=== PATIENT | female | born 1995 | race Asian ===

== ENCOUNTER 2016-09-12 19:51 | Emergency (ER) | payer OTHER ==
[2016-09-12] MEDS ORDERED: NS 0.9% 1000 ML* 1,000 ML IV ONE (20:33)
[2016-09-12] MEDS ORDERED: Ondansetron INJ* 2 MG/ML VIAL IV ONE (20:35)
[2016-09-12] MEDS ORDERED: HYDROmorphone* 1 MG/ML 1 ML SYR IV ONE (20:35)
[2016-09-12 21:01] VITALS: BP 102/87
[2016-09-12 21:13] LABS: Hematocrit 38 % (35-47); Hemoglobin 12.6 g/dl (12.0-16.0); Mean Corpuscular HGB Conc 33 g/dl (31-36); Mean Corpuscular Hemoglobin 29 pg (27-31); Mean Corpuscular Volume 88 fL (80-97); Mean Platelet Volume 9 um3 (7.4-10.4); Red Blood Count 4.31 10^6/ul (4.0-5.4); Red Cell Distribution Width 12 % (10.5-15); White Blood Count 7.6 10^3/ul (3.5-10.8)
[2016-09-12 21:14] LABS: Urine Bilirubin Negative (Negative); Urine Glucose Negative (Negative); Urine Nitrite Negative (Negative)
--- NOTE | 2016-09-12 21:17 | RAD ---
INDICATION: Right upper quadrant pain COMPARISON: CT November 05, 2015 TECHNIQUE: Longitudinal and transverse scans of the right upper quadrant were obtained. Doppler interrogation of the hepatic and portal venous system was performed. FINDINGS: Liver: The liver is normal in size and echogenicity. There are no focal masses. The liver measures 14.2 cm in cephalocaudal dimension. Vessels: There is normal hepatic and portal venous flow. Bile ducts: There is no evidence of intrahepatic or extrahepatic ductal dilatation. The common duct measures 0.3 cm. Gallbladder: There is a small, nonshadowing, echogenic focus in the neck the gallbladder which may represent a polyp or less likely a noncalcified stone. There is no thickening of the gallbladder wall or pericholecystic fluid. Pancreas: The visualized pancreas appears normal Right kidney: The right kidney is normal in size and echogenicity. There are no masses or calculi. There is no evidence of hydronephrosis. The right kidney measures 9.8 x 4.6 x 3.7 cm. IVC and aorta: The aorta and superior vena cava appear normal. Fluid: There is no ascites. Other: None. IMPRESSION: PROBABLE GALLBLADDER POLYP, LESS LIKELY NONCALCIFIED STONE . NO SONOGRAPHIC FINDINGS OF ACUTE CHOLECYSTITIS
[2016-09-12 21:26] LABS: ALT 15 U/L (7-52); Albumin 4.4 g/dL (3.2-5.2); Alkaline Phosphatase 40 U/L (34-104); BUN/Creatinine Ratio 21.3 (8-20); Blood Urea Nitrogen 16 mg/dL (6-24); C Reactive Protein < 1.00 mg/L (< 5.00); CO2 Carbon Dioxide 25 mmol/L (22-32); Calcium 9.4 mg/dL (8.6-10.3); Chloride 102 mmol/L (101-111); EGFR African American 125.4 (>60); EGFR Non-African American 97.5 (>60); Globulin 3.1 g/dL (2-4); Glucose 85 mg/dL (70-100); Lipase 18 U/L (11.0-82.0); Sodium 134 mmol/L (133-145); Total Protein 7.5 g/dL (6.4-8.9)
[2016-09-12 21:50] LABS: AST 18 U/L (13-39); Anion Gap 7 mmol/L (2-11); Potassium 3.7 mmol/L (3.5-5.0)
[2016-09-12] MEDS ORDERED: HYDROcodone/ACETAMIN 5-325 MG* 1 TAB PO ONE (23:00)
--- NOTE | 2016-09-14 20:20 | ED ---
Susanne King Alok, scribed for Mart Bryant MD on 09/12/16 at 203 . Abdominal Pain/Female - HPI Summary HPI Summary: 21 y/o female presents to the ED and c/o lower abd pain on her right side. This pain which began yesterday worsened this afternoon prompting her to visit the ED. Her abd pain is described as a stinging pain and is not worsened by movement or urination. Pt also adds nausea on top of her abd pain. Her BM have been normal. Her LNMP was 3 weeks ago and pt states there is no change of current . She also had an ovarian cyst on the same side two years prior. - History of Current Complaint Chief Complaint: EDAbdPain Stated Complaint: ABD/OVARY PAIN Time Seen by Provider: 09/12/16 20:17 Hx Obtained From: Patient Hx Last Menstrual Period: 3 WEEKs AGO ?: No Onset/Duration: Gradual Onset Timing: Constant Severity Initially: Moderate Severity Currently: Moderate Pain Intensity: 5 Pain Scale Used: 0-10 Numeric Location: Discrete At: RUQ, Discrete At: RLQ Radiates: Yes Radiates to: Flank Character: Other: - "Stinging" Aggravating Factor(s): Nothing Alleviating Factor(s): Nothing Associated Signs and Symptoms: Positive: Nausea Allergies/Adverse Reactions: Allergies Allergy/AdvReac Type Severity Reaction Status Date / Time Sulfa Drugs Allergy Severe Swelling Verified 04/30/16 17:50 Sulfamethoxazole Allergy Severe Swelling Verified 04/30/16 17:50 w/Trimethoprim [From Bactrim] PMH/Surg Hx/FS Hx/Imm Hx Endocrine/Hematology History: Reports: Hx Thyroid Disease - BRANDY'S Denies: Hx Diabetes Cardiovascular History: Denies: Hx Congestive Heart Failure, Hx Hypertension - Immunization History Date of Tetanus Vaccine: Unk Date of Influenza Vaccine: Unk Infectious Disease History: No Infectious Disease History: Denies: Traveled Outside the [place] in Last 30 Days - Family History Known Family History: Negative: Cardiac Disease Family History: no known cardio vascular disease in family lineage - Social History Alcohol Use: None Substance Use Type: Reports: None Substance Use Comment - Amount & Last Used: tried Marijuana mid apr. once Smoking Status (MU): Never Smoked Tobacco Review of Systems Negative: Fever Positive: Abdominal Pain, Nausea All Other Systems Reviewed And Are Negative: Yes Physical Exam Triage Information Reviewed: Yes Vital Signs On Initial Exam: Initial Vitals Temp Pulse Resp BP Pulse Ox 98.4 F 84 16 108/70 100 09/12/16 19:54 09/12/16 19:54 09/12/16 19:54 09/12/16 19:54 09/12/16 19:54 Vital Signs Reviewed: Yes Appearance: Positive: Well-Appearing, No Pain Distress Skin: Positive: Warm, Skin Color Reflects Adequate Perfusion, Dry Head/Face: Positive: Normal Head/Face Inspection Eyes: Positive: Normal ENT: Positive: Normal ENT inspection Neck: Positive: Supple, Nontender Respiratory/Lung Sounds: Positive: Clear to Auscultation, Breath Sounds Present Cardiovascular: Positive: RRR Abdomen Description: Positive: Soft, Other: - Tenderness to palpation RUQ and RLQ, worse on RUQ Bowel Sounds: Positive: Present Musculoskeletal: Positive: Normal Neurological: Positive: Normal Psychiatric: Positive: Normal, Affect/Mood Appropriate - [place] Coma Scale Coma Scale Total: 15 Diagnostics - Vital Signs Vital Signs Temp Pulse Resp BP Pulse Ox 09/12/16 19:54 98.4 F 84 16 108/70 100 - Laboratory Lab Results: Lab Results 09/12/16 09/12/16 09/12/16 Range/Units 20:55 20:55 20:55 WBC 7.6 (3.5-10.8) 10^3/ul RBC 4.31 (4.0-5.4) 10^6/ul Hgb 12.6 (12.0-16.0) g/dl Hct 38 (35-47) % MCV 88 (80-97) fL MCH 29 (27-31) pg MCHC 33 (31-36) g/dl RDW 12 (10.5-15) % Plt Count 203 (150-450) 10^3/ul MPV 9 (7.4-10.4) um3 Neut % (Auto) 66.1 (38-83) % Lymph % (Auto) 27.0 (25-47) % [place] % (Auto) 5.4 (1-9) % Eos % (Auto) 0.9 (0-6) % Baso % (Auto) 0.6 (0-2) % Absolute Neuts (auto) 5.0 (1.5-7.7) 10^3/ul Absolute Lymphs (auto) 2.1 (1.0-4.8) 10^3/ul Absolute Monos (auto) 0.4 (0-0.8) 10^3/ul Absolute Eos (auto) 0.1 (0-0.6) 10^3/ul Absolute Basos (auto) 0 (0-0.2) 10^3/ul Absolute Nucleated RBC 0 10^3/ul Nucleated RBC % 0 Sodium 134 (133-145) mmol/L Potassium 3.7 (3.5-5.0) mmol/L Chloride 102 (101-111) mmol/L Carbon Dioxide 25 (22-32) mmol/L Anion Gap 7 (2-11) mmol/L BUN 16 (6-24) mg/dL Creatinine 0.75 (0.51-0.95) mg/dL Est GFR ( Amer) 125.4 (>60) Est GFR (Non-Af Amer) 97.5 (>60) BUN/Creatinine Ratio 21.3 H (8-20) Glucose 85 (70-100) mg/dL Calcium 9.4 (8.6-10.3) mg/dL Total Bilirubin 0.50 (0.2-1.0) mg/dL AST 18 (13-39) U/L ALT 15 (7-52) U/L Alkaline Phosphatase 40 (34-104) U/L C-Reactive Protein < 1.00 (< 5.00) mg/L Total Protein 7.5 (6.4-8.9) g/dL Albumin 4.4 (3.2-5.2) g/dL Globulin 3.1 (2-4) g/dL Albumin/Globulin Ratio 1.4 (1-3) Lipase 18 (11.0-82.0) U/L Beta HCG, Quant < 0.60 mIU/mL Urine Color Straw Urine Appearance Clear Urine pH 6.0 (5-9) Ur Specific [place] 1.008 L (1.010-1.030) Urine Protein Negative (Negative) Urine Ketones Negative (Negative) Urine Blood Negative (Negative) Urine Nitrate Negative (Negative) Urine Bilirubin Negative (Negative) Urine Urobilinogen Negative (Negative) Ur Leukocyte Esterase Negative (Negative) Urine Glucose Negative (Negative) Result Diagrams: 09/12/16 20:55 09/12/16 20:55 Lab Statement: Any lab studies that have been ordered have been reviewed, and results considered in the medical decision making process. - Additional Comments Diagnostic Additional Comments: Gallbladder US: IMPRESSION: PROBABLE GALLBLADDER POLYP, LESS LIKELY NONCALCIFIED STONE . NO SONOGRAPHIC FINDINGS OF ACUTE CHOLECYSTITIS Abdominal Pain Fem Course/Dx - Course Course Of Treatment: Ms. Ambrose presented with abdominal pain that was atypical and her W/U was negative. I can't say with certainty that this isn't rlated to her appendix but it is unlikely and I want to spare her the radiation. She indicated understanding and will return if she worsens. - Diagnoses Provider Diagnoses: Abdominal pain Discharge - Discharge Plan Condition: Stable Disposition: HOME Patient Education Materials: Abdominal Pain (ED) Referrals: [facility] JASON Goff [Primary Care Provider] - Additional Instructions: Follow up with Jason in the next few days The documentation as recorded by the Susanne santiago Alok accurately reflects the service I personally performed and the decisions made by me, Mart Bryant MD.
== END 2016-09-12 23:14 | disposition home or self-care (01) ==
LOC: ED 19:51
DX: R10.30 Lower abdominal pain, unspecified (principal); R11.0 Nausea
CPT/HCPCS: 36415; 76705; 80053; 81003; 83690; 84702; 85025; 86140; 96374; 96375; 99283; J1170; J2405